=== PATIENT | male | born 2000 | race Caucasian/White ===

== ENCOUNTER 2022-12-21 10:06 | Emergency (ER) | payer OTHER, SELFPAY ==
[2022-12-21 10:23] VITALS: BP 129/78; PULSE 98; RESP 16; TEMP 37.4; O2SAT 98; BMI 24.4
[2022-12-21 10:59] LABS: COVID19 -Nasal RAPID POSITIVE (Negative)
--- NOTE | 2022-12-21 11:59 | ED.URI ---
HPI - URI/Sore Throat General Chief Complaint: Upper Respiratory Symptoms Stated Complaint: covid + at home test Time Seen by Provider: 12/21/22 11:58 Source: patient Mode of arrival: Ambulatory History of Present Illness HPI Narrative: Patient healthy 22-year-old male presenting today with positive COVID test. He reports that he and his girlfriend went to a concert a couple days ago started having symptoms 2 days ago with a sore throat and runny nose took a test yesterday. 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 He has no other symptoms or complaints. He is tolerating fluids he is taking DayQuil and NyQuil Related Data Home Medications Medication Instructions Recorded Confirmed No Known Home Medications 12/21/22 12/21/22 Allergies Allergy/AdvReac Type Severity Reaction Status Date / Time No Known Drug Allergies Allergy Verified 12/21/22 10:27 Review of Systems Review of Systems ROS Unobtainable: All systems reviewed & are unremarkable except as noted in HPI and below Patient History Social History Smoking Status: Never smoker Smoking Status: Never smoker alcohol intake frequency: holidays/special occasions only Substance Use Type: does not use Exam Initial Vital Signs Initial Vital Signs: Vital Signs Temperature 99.3 F 12/21/22 10:23 Pulse Rate 98 H 12/21/22 10:23 Respiratory Rate 16 12/21/22 10:23 Blood Pressure 129/78 12/21/22 10:23 Pulse Oximetry 98 12/21/22 10:23 Oxygen Delivery Method Room Air 12/21/22 10:23 GENERAL: Alert pleasant well-appearing 22-year-old male and in no acute distress. HEENT: Head atraumatic,EOMI, pupils reactive, face symmetric, moist mucous membranes CARDIOVASCULAR: Regular rate and rhythm without murmurs, rubs or gallops. RESPIRATORY: Breath sounds equal bilaterally, no wheezes rales or rhonchi. EXTREMITIES: Normal range of motion, no clubbing or edema. Neurovascularly intact NEUROLOGICAL: Alert and oriented x4. SKIN: Warm, dry, no laceration, no petechiae, no rashes or lesions. Course Orders Ordered: ED Orders 12/21/22 10:30 COVID19 -Nasal RAPID Stat Vital Signs Vital signs: Vital Signs - 8 hr 12/21/22 12:26 Pulse Rate 70 Respiratory Rate 14 Blood Pressure 118/72 Pulse Oximetry 99 Oxygen Delivery Method Room Air MDM - URI/Sore Throat Lab Data Labs: Lab Results 12/21/22 Range/Units 10:30 SARS-CoV-2 (PCR) Positive H (Negative) MDM Narrative Medical decision making narrative: Patient has mild upper respiratory symptoms positive COVID test and it healthy. No risk factors. Here solely for documentation purposes. Discharge Plan Departure Patient Disposition: Home Clinical Impression: COVID-19 Instructions: COVID-19 Activity Restrictions/Additional Instructions: *You have been diagnosed with you tested positive for COVID-19 *What to do: Please follow your policy and protocol. Please check DayQuil NyQuil to make sure you are not exceeding the maximum doses of Tylenol and ibuprofen *Continue to take medications as directed Motrin 600 mg every 6 hours if needed for [id number] pain or fever Tylenol 1000 mg (max) every 6 hours if needed for [id number] pain or fever *Follow up with your primary care provider in 2-3 days or call [phone] *Return to ER if you should have not tolerating fluids, increase shortness of breath or any new, worsening or concerning symptoms Prescriptions: No Action No Known Home Medications Stand Alone Forms: Patient Portal/API, Work Release Note
[2022-12-21 12:26] VITALS: BP 118/72; PULSE 70; RESP 14; O2SAT 99
== END 2022-12-21 12:28 | disposition home or self-care (01) ==
PROVIDERS: Emergency Provider Emergency Medicine
DX: U07.1 COVID-19 (principal)
CPT/HCPCS: 87635; 99282; C9803